=== PATIENT | female | born 1965 | race Caucasian/White ===

== ENCOUNTER 2023-05-19 13:02 | Inpatient (IN) | payer BC ==
[2023-05-19] VITALS (10 sets, daily range): BP systolic 147–167; BP diastolic 79–95
[~2023-05-19] VITALS: Ht 170.2 cm; Wt 82.7 kg
[2023-05-19 13:47] LABS: BASOPHILS % (AUTO) 0.4 % (0-1); EOSINOPHILS % (AUTO) 0.2 % (0-6); HEMATOCRIT 44.2 % (35.0-45.0); HEMOGLOBIN 14.7 g/dl (12.0-16.0); LYMPHOCYTES # (AUTO) 1.2 X10'3 (1.1-4.8); LYMPHOCYTES % (AUTO) 8.7 % (21-51); MEAN CORPUSCULAR HEMOGLOBIN 26.3 PG (27.0-31.0); MEAN CORPUSCULAR HGB CONC 33.2 g/dL (33.0-36.5); MEAN CORPUSCULAR VOLUME 79.4 FL (78-98); MEAN PLATELET VOLUME 8.5 FL (7.4-10.4); MONOCYTES % (AUTO) 7.3 % (2-12); NEUTROPHILS # (AUTO) 11.2 X10'3 (1.8-7.7); NEUTROPHILS % (AUTO) 83.4 % (42-75); PLATELET COUNT 344 X10'3 (140-440); RED BLOOD COUNT 5.57 X10'6 (4.20-5.60); RED CELL DISTRIBUTION WIDTH 13.7 % (11.5-14.5); WHITE BLOOD COUNT 13.4 X10'3 (4.5-11.0)
[2023-05-19 13:57] LABS: ALANINE AMINOTRANSFERASE 50 U/L (12-78); ALBUMIN 3.7 G/DL (3.4-5.0); ALBUMIN/GLOBULIN RATIO 1.1 (1.1-1.5); ANION GAP 13 (8-16); ASPARTATE AMINO TRANSFERASE 61 U/L (10-37); BILIRUBIN,TOTAL 0.8 MG/DL (0.1-1.0); BLOOD UREA NITROGEN 13 MG/DL (7-18); BUN/CREATININE RATIO 11.4 (10.0-20.0); CALCIUM 9.3 MG/DL (8.5-10.1); CHLORIDE 104 MMOL/L (99-107); CREATININE 1.14 MG/DL (0.40-0.90); GLUCOSE 101 MG/DL (70-104); POTASSIUM 3.5 MMOL/L (3.5-5.1); SODIUM 141 MMOL/L (135-145); TOTAL CARBON DIOXIDE 23.9 MMOL/L (24-32); TOTAL PROTEIN 7.1 G/DL (6.4-8.2); eGFR 49 ML/MIN
[2023-05-19 13:58] LABS: ALKALINE PHOSPHATASE 194 IU/L (46-116)
[2023-05-19] MEDS ORDERED: fentaNYL/PF 50MCG/1 ML 2ML syringe IV ONE (14:15)
[2023-05-19] MEDS ORDERED: ondansetron/PF 4mg/2ml inj IV ONE (14:15)
[2023-05-19] MEDS ORDERED: normal saline 1000ML IV soln IVB ONE (14:35)
[2023-05-19] MEDS ORDERED: acetaminophen 325mg tablet PO PRN ×2 (15:35)
[2023-05-19] MEDS ORDERED: normal saline 1000ml 1,000 ML IV SCH (15:35)
[2023-05-19] MEDS ORDERED: magnesium hydroxide 30ml (MOM) UD suspension PO PRN (15:35)
[2023-05-19] MEDS ORDERED: magnesium 4gm in 100ml NS 100 ML IV PRN (15:35)
[2023-05-19] MEDS ORDERED: potassium Cl 20 mEq SR tablet PO PRN ×2 (15:35)
[2023-05-19] MEDS ORDERED: magnesium Cl slow-release 64mg tablet PO PRN (15:35)
[2023-05-19] MEDS ORDERED: magnesium 2GM in 50ml NS 50 ML IV PRN (15:35)
[2023-05-19] MEDS ORDERED: ondansetron/PF 4mg/2ml inj IV PRN ×2 (15:35→15:50)
[2023-05-19] MEDS ORDERED: potassium Cl 40MEQ/1/2NS 520ml 520 ML IV PRN (15:35)
[2023-05-19] MEDS ORDERED: mag hydrox/Alum hydrox/simeth 30ml oral suspension PO PRN (15:35)
[2023-05-19] MEDS ORDERED: CefTRIAXone/D5W-Rocephin 1gm 50 ML IV SCH (15:45)
[2023-05-19] MEDS ORDERED: HYDROmorphone/PF 0.2 MG/ML SYRINGE IV PRN ×2 (15:50)
[2023-05-19] MEDS ORDERED: meperidine/PF 25mg/ml syringe IV PRN ×2 (15:50)
[2023-05-19] MEDS ORDERED: ringers solution, lacted 1,000 ML IV SCH (15:50)
[2023-05-19] MEDS ORDERED: sevoflurane 250ml liquid IH ONE (15:58)
[2023-05-19] MEDS ORDERED: ketorolac tromethamine 15mg/ml inj. ONE (15:58)
[2023-05-19] MEDS ORDERED: fentaNYL/PF 50MCG/1 ML 2ML syringe ONE (16:00)
[2023-05-19] MEDS ORDERED: midazolam 1 mg/ML 2ml injection ONE (16:01)
[2023-05-19] MEDS ORDERED: iohexol 300 MG/1 ML 50ml polymer ONE (16:07)
[2023-05-19] MEDS ORDERED: sugammadex 200mg/2ml injection IV ONE (16:18)
[2023-05-19] MEDS ORDERED: propofol inj 20 ML IV ONE (16:27)
[2023-05-19] MEDS ORDERED: dexamethasone sod phosphate 4mg/ml inj. ONE (16:27)
[2023-05-19] MEDS ORDERED: LIDOcaine 2% (20mg/ml) 5ml vial ONE (16:27)
[2023-05-19] MEDS ORDERED: rocuronium 10mg/ml inj IV ONE (16:27)
[2023-05-19] MEDS ORDERED: ondansetron/PF 4mg/2ml inj ONE (16:27)
[2023-05-19] MEDS ORDERED: traMADol 50MG tablet PO STA (17:11)
--- NOTE | 2023-05-19 17:27 | NUR ---
Received from OR via , accompanied by Anesthesiologist DR TENA and report given by Anesthesiolgist. VSS. MASK ON 10 LITERS SATTING AT 100%. IV 18G SHERINE. Addendum: 05/19/23 at 1801 by Amanda Wright RN PATIENT ARRIVED AT 1627 NOT 1727
--- NOTE | 2023-05-19 17:47 | NUR ---
PATIENT MEETS DISCHARGE CRITERIA. IV DC'D WITH NO ISSUES. DAUGHTER AT BEDSIDE WHILE EDUCATING PATIENT ON DISCHARGE INSTRUCTIONS. CALLED [facility] TO VERIFY DR ORDER OF ABX WAS AVAILABLE. STOPPED AT SECURITY TO CLEANING STAFF SUPERVISOR PATIENT'S BELIGINGS AND WHEELED THE PATIENT TO FX VEHICLE.
[2023-05-19] MEDS ORDERED: K and/or MAG REPLACEMENT MC SCH (20:00)
== END 2023-05-19 17:50 | disposition home or self-care (01) | DRG 661 ==
LOC: ER 13:03 → ORTHO 4S 15:36
PROVIDERS: ADMIT Internal Medicine; ATTEND Internal Medicine
PROC: 0T778DZ Dilation of Left Ureter with Intraluminal Device, Via Natural or Artificial Opening Endoscopic (ICD-10-PCS; 2023-05-19)
PROC: BT1F1ZZ Fluoroscopy of Left Kidney, Ureter and Bladder using Low Osmolar Contrast (ICD-10-PCS; principal; 2023-05-19 15:58)
DX: N13.2 Hydronephrosis with renal and ureteral calculous obstruction (principal); D72.829 Elevated white blood cell count, unspecified; I10 Essential (primary) hypertension; Z98.84 Bariatric surgery status; Z88.6 Allergy status to analgesic agent; Z88.8 Allergy status to other drugs, medicaments and biological substances
CPT/HCPCS: 36415; 74420; 76000; 80053; 85025; 93005; 99285; A4618; C1769; C2617; G0378; J1100; J1885; J2250; J2405; J2704; J3010; J3490; J7030; J7120; Q9967

== ENCOUNTER 2024-03-04 10:38 | Emergency (ER) | payer OTHER, BC ==
[~2024-03-04] VITALS: Ht 170.2 cm; Wt 90.0 kg
[2024-03-04 10:43] VITALS: TEMP 97.7
[2024-03-04] MEDS: HYDROcodone/acetaminophen 5mg/325mg tablet PO ONE (11:40)
[2024-03-04 12:35] VITALS: BP 168/90; PULSE 83; O2SAT 100
[2024-03-04] MEDS ORDERED: TRAM50TA2 PO (13:24)
[2024-03-04 13:37] VITALS: RESP 16
[2024-03-04] MEDS: traMADol 50MG tablet PO ONE (13:37)
== END 2024-03-04 14:34 | disposition home or self-care (01) ==
LOC: ER 10:39
DX: S83.92XA Sprain of unspecified site of left knee, initial encounter (principal); I10 Essential (primary) hypertension; Z88.8 Allergy status to other drugs, medicaments and biological substances; Z88.1 Allergy status to other antibiotic agents; Z88.5 Allergy status to narcotic agent; Z90.49 Acquired absence of other specified parts of digestive tract; Z98.890 Other specified postprocedural states; W19.XXXA Unspecified fall, initial encounter; Y93.89 Activity, other specified; Y92.89 Other specified places as the place of occurrence of the external cause; Y99.8 Other external cause status
CPT/HCPCS: 29505; 73560; 73600; 73620; 73700; 99284